=== PATIENT | male | born 1960 | race Caucasian/White ===

== ENCOUNTER 2019-09-16 23:38 | Observation (INO) | payer BC ==
[2019-09-17 00:33] LABS: Absolute Lymphocytes (CBC) 1.6 K/uL (0.7-4.9); Hematocrit 38.9 % (39.6-49.0); Lymphocytes % 13.8 % (15.3-44.8); MPV 7.8 fL (7.6-11.3)
[2019-09-17 00:49] LABS: Protime INR 0.94
[2019-09-17 00:54] LABS: ALT/SGPT 52 U/L (12-78); AST/SGOT 50 U/L (15-37); Albumin 3.6 g/dL (3.4-5.0); Alkaline Phosphatase 45 U/L (45-117); BUN Blood Urea Nitrogen 18 mg/dL (7-18); Bicarbonate 24 mmol/L (21-32); Bilirubin Direct < 0.1 mg/dL (0-0.2); Bilirubin Total 0.3 mg/dL (0.2-1.0); Glucose Level 93 mg/dL (74-106); Magnesium 2.3 mg/dL (1.8-2.4); NT PRO-BNP 50 pg/mL (<125); Potassium 3.9 mmol/L (3.5-5.1); Protein, Total 7.2 g/dL (6.4-8.2); Sodium Level 140 mmol/L (136-145); Troponin (Emerg Dept Use Only) < 0.02 ng/mL (0.0-0.045)
[2019-09-17] MEDS ORDERED: MAGNESIUM SULFATE 1 gm IVPB 1 GM/100 ML BAG IV ONE (01:24)
[2019-09-17] MEDS ORDERED: THIAMINE 200 MG/2 ML INJ ONE (01:24)
[2019-09-17] MEDS ORDERED: FOLIC ACID 5 MG/ML VIAL ONE (01:25)
[2019-09-17] MEDS ORDERED: NA CHLORIDE 0.9% 2,000 ML ONE (01:25)
[2019-09-17] MEDS ORDERED: MULTIVITAMINS 10 ML VIAL (INJ) IV ONE (01:25)
--- NOTE | 2019-09-17 01:34 | EDPHYS ---
Physician Documentation [facility] Name: Teofilo Thornton Age: 59 yrs Sex: Male : 1960 Arrival Date: 09/16/2019 Time: 23:47 Bed 23 Private MD: ED Physician Jules Richardson HPI: 09/16 00:17 This 59 yrs old Male presents to ER via EMS with complaints of Fall Injury. calin 00:17 Details of fall: The patient fell from an upright position, while standing. Onset: The calin symptoms/episode began/occurred just prior to arrival. Associated injuries: The patient sustained injury to the head, injury to the chest. Severity of symptoms: At their worst the symptoms were mild, moderate, in the emergency department the symptoms have improved. The patient has not experienced similar symptoms in the past. Historical: - Allergies: 00:05 No Known Allergies; rr5 - Home Meds: 00:05 None [Active]; rr5 - PMHx: 00:05 None; rr5 - PSHx: 00:05 jaw surgery; rr5 - Immunization history:: Adult Immunizations up to date. - Social history:: Smoking status: unknown Patient uses alcohol, occasionally. Patient/guardian denies using street drugs. ROS: 00:17 Constitutional: Negative for fever, chills, and weight loss, Eyes: Negative for injury, calin pain, redness, and discharge, ENT: Negative for injury, pain, and discharge, Neck: Negative for injury, pain, and swelling, Respiratory: Negative for shortness of breath, cough, wheezing, and pleuritic chest pain, Abdomen/GI: Negative for abdominal pain, nausea, vomiting, diarrhea, and constipation, Back: Negative for injury and pain, : Negative for injury, bleeding, discharge, and swelling, MS/Extremity: Negative for injury and deformity, Skin: Negative for injury, rash, and discoloration, Psych: Negative for depression, anxiety, suicide ideation, homicidal ideation, and hallucinations, Allergy/Immunology: Negative for hives, rash, and allergies, Endocrine: Negative for neck swelling, polydipsia, polyuria, polyphagia, and marked weight changes, Hematologic/Lymphatic: Negative for swollen nodes, abnormal bleeding, and unusual bruising. 00:17 Cardiovascular: Positive for chest pain, of the chest. Exam: 00:17 Constitutional: This is a well developed, well nourished patient who is awake, alert, calin and in no acute distress. Head/Face: Normocephalic, atraumatic. Eyes: Pupils equal round and reactive to light, extra-ocular motions intact. Lids and lashes normal. Conjunctiva and sclera are non-icteric and not injected. Cornea within normal limits. Periorbital areas with no swelling, redness, or edema. ENT: Nares patent. No nasal discharge, no septal abnormalities noted. Tympanic membranes are normal and external auditory canals are clear. Oropharynx with no redness, swelling, or masses, exudates, or evidence of obstruction, uvula midline. Mucous membranes moist. Neck: Trachea midline, no thyromegaly or masses palpated, and no cervical lymphadenopathy. Supple, full range of motion without nuchal rigidity, or vertebral point tenderness. No Meningismus. Chest/axilla: Normal chest wall appearance and motion. Nontender with no deformity. No lesions are appreciated. Respiratory: Lungs have equal breath sounds bilaterally, clear to auscultation and percussion. No rales, rhonchi or wheezes noted. No increased work of breathing, no retractions or nasal flaring. Abdomen/GI: Soft, non-tender, with normal bowel sounds. No distension or tympany. No guarding or rebound. No evidence of tenderness throughout. Back: No spinal tenderness. No costovertebral tenderness. Full range of motion. Male : Normal genitalia with no discharge or lesions. Skin: Warm, dry with normal turgor. Normal color with no rashes, no lesions, and no evidence of cellulitis. MS/ Extremity: Pulses equal, no cyanosis. Neurovascular intact. Full, normal range of motion. Neuro: Awake and alert, GCS 15, oriented to person, place, time, and situation. Cranial nerves II-XII grossly intact. Motor strength 5/5 in all extremities. Sensory grossly intact. Cerebellar exam normal. Normal gait. Psych: Awake, alert, with orientation to person, place and time. Behavior, mood, and affect are within normal limits. 00:17 Cardiovascular: Rate: normal, Rhythm: regular, Pulses: Pulses are 4+ in bilateral radial, brachial, femoral, popliteal, posterior tibial and and dorsalis pedis arteries.. Heart sounds: normal, Edema: is not appreciated, JVD: is not appreciated. 00:24 Neck: External neck: is normal, no acute changes, C-spine: appears grossly normal, no calin acute changes, C-collar placed [employer], Back board [employer] Thyroid: appears normal, Trachea: is midline with no obvious abnormalities, no acute changes, ROM/movement: is normal, no acute changes, Lymph nodes: no appreciated lymphadenopathy, no c spine pain. 06:44 ECG was reviewed by the Attending Physician. [facility] Vital Signs: 00:00 BP 122 / 82; Pulse 91; Resp 16; Temp 98.5; Pulse Ox 99% ; Weight 86.18 kg; Height 5 ft. rr5 10 in. (177.80 cm); Pain 6/10; 01:25 BP 103 / 70; Pulse 90; Resp 17; Pulse Ox 99% on R/A; rr5 02:00 BP 119 / 75; Pulse 110; Resp 16; Pulse Ox 99% on R/A; rr5 02:47 BP 100 / 79; Pulse 108; Resp 19; Pulse Ox 98% on R/A; rr5 00:00 Body Mass Index 27.26 (86.18 kg, 177.80 cm) rr5 MDM: 00:03 Patient medically screened. [facility] 00:20 Data reviewed: vital signs, nurses notes, lab test result(s), EKG, radiologic studies, [facility] CT scan, plain films. 00:21 Differential diagnosis: abnormal EKG, anxiety, chest wall pain, Cholelithiasis calin costochondritis, esophagitis, gastritis, hiatal hernia, pancreatitis, pulmonary embolus, stable angina, unstable angina, arrythmia. HEART Score: History: Slightly Suspicious (0), ECG: Non specific repolarization disturbance / LBTB / PM (1), Age: > 45 and < 65 years (1), Risk Factors: 1 or 2 risk factors (1), [Hypertension] [+ Family HX]. Differential diagnosis: closed head injury, contusion, cardiac arrhythmia, drug effect, GI bleed, vasovagal episode. The patient's deep vein thrombosis risk score was calculated as follows: Total Score: 0. This patient was found to be at low risk for a deep vein thrombosis by using the Well's assessment criteria. The patient's pulmonary embolism risk score was calculated as follows: Total Score: 0-2 points. This patient was found to be at low risk for a pulmonary embolism by using the Well's assessment criteria. SUSANA Risk Score: TOTAL SCORE = 0. Data interpreted: lunchroom monitor: rate is 91 beats/min, rhythm is atrial fibrillation, Pulse oximetry: on room air is 99 %. Test interpretation: by ED physician or midlevel provider: ECG, plain radiologic studies. Counseling: I had a detailed discussion with the patient and/or guardian regarding: the historical points, exam findings, and any diagnostic results supporting the discharge/admit diagnosis, lab results, radiology results, the need for further work-up and treatment in the hospital. 01:34 ED course: etoh, syncope, chest compressions, a fib new, obs , dr nichole. [facility] 09/16 00:01 Order name: Basic Metabolic Panel; Complete Time: rr 09/16 00:01 Order name: CBC with Diff; Complete Time: rr09/16 00:01 Order name: LFT's; Complete Time: rr 09/16 00:01 Order name: Magnesium; Complete Time: rr09/16 00:01 Order name: NT PRO-BNP; Complete Time: rr09/16 00:01 Order name: PT-INR; Complete Time: rr09/16 00:01 Order name: Troponin (emerg Dept Use Only); Complete Time: rr09/16 00:01 Order name: XRAY Chest (1 view) [facility] 09/16 00:16 Order name: Lipase [facility] 09/16 00:16 Order name: TSH [facility] 09/16 01:52 Order name: T4 Free [facility] 09/16 02:11 Order name: Troponin I [facility] 09/16 02:11 Order name: Troponin I [facility] 09/16 02:11 Order name: Troponin I [facility] 09/16 00:01 Order name: EKG; Complete Time: 00:02 rr09/16 00:01 Order name: Cardiac monitoring; Complete Time: 00:34 rr 09/16 00:16 Order name: CT Head Brain wo Cont [facility] 09/16 02:11 Order name: CONS Physician Consult [facility] 09/16 02:11 Order name: Echo with Doppler [facility] 09/16 02:11 Order name: EKG Electrocardiogram [facility] 09/16 02:11 Order name: EKG Electrocardiogram [facility] 09/16 02:13 Order name: EKG Electrocardiogram EDMS 09/16 13:18 Order name: RAD EDMS 09/16 00:01 Order name: EKG - Nurse/Tech; Complete Time: 00:33 rr5 09/16 00:01 Order name: IV Saline Lock; Complete Time: 00:33 rr5 09/16 00:01 Order name: Labs collected and sent; Complete Time: 00:33 rr5 09/16 00:01 Order name: O2 Per Protocol; Complete Time: 00:34 rr09/16 00:01 Order name: O2 Sat Monitoring; Complete Time: 00:34 rr5 EC:44 Rate is 99 beats/min. Rhythm is irregular. QRS [place] is Normal. [place] interval is normal. calin QRS interval is normal. QT interval is normal. No Q waves. T waves are Normal. No ST changes noted. Clinical impression: Atrial Fibrillation and No evidence of ischemia. Interpreted by me. Reviewed by me. Administered Medications: 00:40 Drug: Magnesium Sulfate 1 grams Route: IVPB; Infused Over: 1 hrs; Site: left rr5 antecubital; 01:50 Follow up: Response: No adverse reaction; IV Status: Completed infusion; IV Intake: rr5 100ml 00:40 Drug: NS 0.9% 1000 ml Route: IV; Rate: 1 bolus; Site: left antecubital; rr5 01:40 Follow up: Response: No adverse reaction; IV Status: Completed infusion; IV Intake: rr5 1000ml 00:41 Drug: Thiamine 100 mg Route: IV; Rate: bolus; Site: left antecubital; rr5 01:57 Follow up: Response: No adverse reaction; IV Status: Completed infusion rr5 01:56 Drug: Banana Bag - (NS 0.9% 1000 ml, foLIC Acid 1 mg, Thiamine 100 mg, Multivitamin 1 rr5 amp) Route: IV; Rate: 125 ml/hr; Site: left antecubital; 05:51 Follow up: Response: No adverse reaction; IV Status: Infusion continued upon admission; rr5 IV Intake: 500ml 02:05 Drug: Lopressor (metoprolol TARTRATE) 50 mg Route: PO; rr5 03:05 Follow up: Response: No adverse reaction rr5 02:07 Drug: Lovenox 90 mg Route: Sub-Q; Site: right lower abdomen; rr5 03:10 Follow up: Response: No adverse reaction rr5 02:08 Drug: Pepcid 20 mg Route: IVP; Site: left antecubital; rr5 03:10 Follow up: Response: No adverse reaction rr5 Disposition: 09/17/19 01:33 Hospitalization ordered by Brigid Nichole for Observation. Preliminary diagnosis are Syncope and collapse - alcohol ingerstion, Other chest pain - wall, sp compressions, Atrial fibrillation and flutter - new onset. - Bed requested for Telemetry/MedSurg (observation). - Status is Observation. hb - Condition is Stable. - Problem is new. - Symptoms have improved. Signatures: Dispatcher [employer] EDMS Laney Figueroa RN Kika Nowak RN Jules Ramos MD MD cha Baxter, Heather, RN RN Hair Guadalupe RN RN rr5 Corrections: (The following items were deleted from the chart) 01:39 01:33 Hospitalization Ordered by Brigid Nichole MD for Observation. Preliminary mw diagnosis is Syncope and collapse - alcohol ingerstion; Other chest pain - wall, sp compressions; Atrial fibrillation and flutter - new onset. Bed requested for Telemetry/MedSurg (observation). Status is Observation. Condition is Stable. Problem is new. Symptoms have improved. [facility] 12:56 01:39 09/17/2019 01:33 Hospitalization Ordered by Brigid Nichole MD for Observation. dw Preliminary diagnosis is Syncope and collapse - alcohol ingerstion; Other chest pain - wall, sp compressions; Atrial fibrillation and flutter - new onset. Bed requested for [facility] ER HOLD. Status is Observation. Condition is Stable. Problem is new. Symptoms have improved. mw 14:42 12:56 09/17/2019 01:33 Hospitalization Ordered by Brigid Nichole MD for Observation. hb Preliminary diagnosis is Syncope and collapse - alcohol ingerstion; Other chest pain - wall, sp compressions; Atrial fibrillation and flutter - new onset. Bed requested for Telemetry/MedSurg (observation). Status is Observation. Condition is Stable. Problem is new. Symptoms have improved. dw
--- NOTE | 2019-09-17 01:34 | ER ---
Nurse's Notes [facility] Name: Teofilo Thornton Age: 59 yrs Sex: Male : 1960 Arrival Date: 09/16/2019 Time: 23:47 Bed 23 Private MD: Diagnosis: Syncope and collapse-alcohol ingerstion;Other chest pain-wall, sp compressions;Atrial fibrillation and flutter-new onset Presentation: 09/16 00:00 Chief complaint: Patient states: fell from a standing position, syncopal episode. hit rr5 his right shoulder. family stated he has no pulse or breathing they did 2 rounds of CPR. when we arrived patient is fully awake, oriented complaining of chest sore due from Chest compression. patient is Afib on child monitor not a known case. 00:00 Coronavirus screen: Proceed with normal triage. Ebola Screen: Patient negative for rr5 fever greater than or equal to 101.5 degrees Fahrenheit, and additional compatible Ebola Virus Disease symptoms Patient denies exposure to infectious person. Patient denies travel to an Ebola-affected area in the 21 days before illness onset. Initial Sepsis Screen: Does the patient meet any 2 criteria? No. Patient's initial sepsis screen is negative. Does the patient have a suspected source of infection? No. Patient's initial sepsis screen is negative. Risk Assessment: Do you want to hurt yourself or someone else? Patient reports no desire to harm self or others. Onset of symptoms was September 17, 2019. 00:00 Method Of Arrival: EMS: [facility] rr5 00:00 Acuity: GUALBERTO 3 rr5 00:00 Note patient had alcohol intake tonight as stated. CBG 95 mg/dl from EMS. rr5 Historical: - Allergies: 00:05 No Known Allergies; rr5 - Home Meds: 00:05 None [Active]; rr5 - PMHx: 00:05 None; rr5 - PSHx: 00:05 jaw surgery; rr5 - Immunization history:: Adult Immunizations up to date. - Social history:: Smoking status: unknown Patient uses alcohol, occasionally. Patient/guardian denies using street drugs. Screenin:00 Abuse screen: Denies threats or abuse. Denies injuries from another. Nutritional rr5 screening: No deficits noted. Tuberculosis screening: No symptoms or risk factors identified. Fall Risk IV access (20 points). Total Garcia Fall Scale indicates No Risk (0-24 pts). Assessment: 00:00 General: Appears in no apparent distress. uncomfortable, Behavior is calm, cooperative, rr5 appropriate for age, on C collar and backboard.. 00:00 Pain: Complains of pain in chest Pain does not radiate. Pain currently is 6 out of 10 rr5 on a pain scale. Quality of pain is described as aching, Pain began gradually, Is intermittent. Neuro: Level of Consciousness is awake, alert, obeys commands, Oriented to person, place, time, situation, Appropriate for age. Cardiovascular: Reports chest pain, Capillary refill < 3 seconds Patient's skin is warm and dry. Parent/caregiver reports patient has had syncope, episode of NO HR and RR. Respiratory: Airway is patent Respiratory effort is even, unlabored, Respiratory pattern is regular, symmetrical. GI: No signs and/or symptoms were reported involving the gastrointestinal system. : No signs and/or symptoms were reported regarding the genitourinary system. EENT: No signs and/or symptoms were reported regarding the EENT system. Derm: Skin is intact, is healthy with good turgor, Skin temperature is warm. Musculoskeletal: Circulation, motion, and sensation intact. Capillary refill < 3 seconds. 00:30 Reassessment: Patient appears in no apparent distress at this time. Patient is alert, rr5 oriented x 3, equal unlabored respirations, skin warm/dry/pink. seen and examined by the provider C-Collar and backboard cleared. 01:30 Reassessment: Patient appears in no apparent distress at this time. Patient is alert, rr5 oriented x 3, equal unlabored respirations, skin warm/dry/pink. for admission patient agreed for the plan of care. awaiting for results. 02:49 Reassessment: Patient appears in no apparent distress at this time. No changes from rr5 previously documented assessment. Patient is alert, oriented x 3, equal unlabored respirations, skin warm/dry/pink. eyes closed breathing spontaneously at room air. no complaints made. Vital Signs: 00:00 BP 122 / 82; Pulse 91; Resp 16; Temp 98.5; Pulse Ox 99% ; Weight 86.18 kg; Height 5 ft. rr5 10 in. (177.80 cm); Pain 6/10; 01:25 BP 103 / 70; Pulse 90; Resp 17; Pulse Ox 99% on R/A; rr5 02:00 BP 119 / 75; Pulse 110; Resp 16; Pulse Ox 99% on R/A; rr5 02:47 BP 100 / 79; Pulse 108; Resp 19; Pulse Ox 98% on R/A; rr5 00:00 Body Mass Index 27.26 (86.18 kg, 177.80 cm) rr5 ED Course: 09/15 23:47 Patient arrived in ED. cl3 09/16 00:00 Hair Ahumada, RN is Primary Nurse. rr5 00:00 Maintain EMS IV. Dressing intact. Good blood return noted. Site clean \T\ dry. Gauge \T\ rr 5 site: G18 left AC. 00:00 Patient has correct armband on for positive identification. Placed in gown. Bed in low rr5 position. Call light in reach. Side rails up X2. campus monitor on. Pulse ox on. NIBP on. 00:00 Warm blanket given. rr5 00:03 Jules Richardson MD is Attending Physician. calin 00:04 Triage completed. rr5 00:05 Arm band placed on right wrist. C-collar applied. rr5 00:33 XRAY Chest (1 view) In Process Unspecified. EDMS 00:34 PT-INR Sent. ds4 00:34 EKG done, by ED staff, reviewed by Jules Richardson MD. ds4 01:06 CT Head Brain wo Cont In Process Unspecified. EDMS 01:31 Brigid Marinelli MD is Hospitalizing Provider. calin 02:45 No provider procedures requiring assistance completed. Patient admitted, IV remains in rr5 place. intact, No redness/swelling at site. Administered Medications: 00:40 Drug: Magnesium Sulfate 1 grams Route: IVPB; Infused Over: 1 hrs; Site: left rr5 antecubital; 01:50 Follow up: Response: No adverse reaction; IV Status: Completed infusion; IV Intake: rr5 100ml 00:40 Drug: NS 0.9% 1000 ml Route: IV; Rate: 1 bolus; Site: left antecubital; rr5 01:40 Follow up: Response: No adverse reaction; IV Status: Completed infusion; IV Intake: rr5 1000ml 00:41 Drug: Thiamine 100 mg Route: IV; Rate: bolus; Site: left antecubital; rr5 01:57 Follow up: Response: No adverse reaction; IV Status: Completed infusion rr5 01:56 Drug: Banana Bag - (NS 0.9% 1000 ml, foLIC Acid 1 mg, Thiamine 100 mg, Multivitamin 1 rr5 amp) Route: IV; Rate: 125 ml/hr; Site: left antecubital; 05:51 Follow up: Response: No adverse reaction; IV Status: Infusion continued upon admission; rr5 IV Intake: 500ml 02:05 Drug: Lopressor (metoprolol TARTRATE) 50 mg Route: PO; rr5 03:05 Follow up: Response: No adverse reaction rr5 02:07 Drug: Lovenox 90 mg Route: Sub-Q; Site: right lower abdomen; rr5 03:10 Follow up: Response: No adverse reaction rr5 02:08 Drug: Pepcid 20 mg Route: IVP; Site: left antecubital; rr5 03:10 Follow up: Response: No adverse reaction rr5 Intake: 01:40 IV: 1000ml; Total: 1000ml. rr5 01:50 IV: 100ml; Total: 1100ml. rr5 05:51 IV: 500ml; Total: 1600ml. rr5 Outcome: 01:33 Decision to Hospitalize by Provider. calin 03:30 Admitted to ER Hold. Please see [facility] for further documentation. rr5 03:30 Condition: stable 03:30 Instructed on the need for admit. 14:42 Patient left the ED. Signatures: Dispatcher [employer] Jules Rojas MD MD cha Swanson, Donovan ds4 Arlyn Chau RN RN Hair Ahumada RN RN rr5 Wilda Mcpherson cl3
[2019-09-17] MEDS ORDERED: ALPRAZOLAM 0.25 MG TABLET PO PRN (01:46)
[2019-09-17] MEDS ORDERED: MORPHINE 4 MG/ML SYR IV PRN (01:46)
[2019-09-17] MEDS ORDERED: ACETAMINOPHEN 500 MG TAB PO PRN (01:46)
[2019-09-17 01:51] LABS: Thyroid Stimulating Hormone 5.35 uIU/mL (0.360-3.740)
[2019-09-17] MEDS ORDERED: ENOXAPARIN 100 MG/ML SYR SQ ONE (02:07)
[2019-09-17] MEDS ORDERED: METOPROLOL TAR 50 MG TAB ONE ×2 (02:07→08:34)
[2019-09-17] MEDS ORDERED: FAMOTIDINE 20 MG/2 ML VIAL IV ONE (02:08)
[2019-09-17 04:30] VITALS: BMI 27.1
[2019-09-17] MEDS ORDERED: MORPHINE 4 MG/ML SYR ONE (05:38)
[2019-09-17] MEDS: METOPROLOL TAR 50 MG TAB PO SCH ×3 (06:00→22:38)
--- NOTE | 2019-09-17 07:49 | P.HP ---
Certification for Inpatient Patient admitted to: Inpatient With expected LOS: >2 Midnights Patient will require the following post-hospital care: None Practitioner: I am a practitioner with admitting privileges, knowledge of patient current condition, hospital course, and medical plan of care. Services: Services provided to patient in accordance with Admission requirements found in Title 42 Section 412.3 of the Code of Federal Regulations Patient History Date of Service: 09/17/19 Reason for admission: Syncope; atrial fibrillation with RVR History of Present Illness: Patient is a 59-year-old gentleman who came to the hospital with a syncopal event. Patient passed out and collapsed. Family members did some chest compressions because they could not feel a pulse. Patient came around and was brought in by EMS and found have atrial fibrillation with rapid ventricular response. Patient has similar event occur about a year ago. At that time he ended up in the ICU at [facility] for 4 days. He suffered a fractured jaw. He needed surgical intervention. They never discovered the etiology of his syncopal event. Patient had a similar event occur this evening and he is in atrial fibrillation with rapid ventricular response. Patient will be admitted to the hospital and started on a beta-eusebio along with anti coagulation. Cardiology consultation is pending. Allergies No Known Allergies Allergy (Unverified 09/17/19 04:05) - Past Medical/Surgical History Past Medical History: Patient denies medical history -: Jaw surgery - Family History Father Family History: Reviewed- Non-Contributory - Social History Smoking Status: Unknown if ever smoked Alcohol use: Yes CD- Drugs: No Review of Systems 10-point ROS is otherwise unremarkable Physical Examination - Vital Signs Temperature: 98.2 F Blood Pressure: 109/68 Pulse: 110 Respirations: 19 Pulse Ox (%): 100 - Physical Exam General: Alert, In no apparent distress, Oriented x3 HEENT: Atraumatic, PERRLA, Mucous membr. moist/pink, EOMI, Sclerae nonicteric Neck: Supple, 2+ carotid pulse no bruit, No LAD, Without JVD or thyroid abnormality Respiratory: Clear to auscultation bilaterally, Normal air movement Cardiovascular: Irregular heart rate/rhythm, Systolic murmur Gastrointestinal: Normal bowel sounds, Soft and benign, Non-distended, No tenderness Musculoskeletal: No clubbing, No swelling, No tenderness Integumentary: No rashes Neurological: Normal gait, Normal speech, Normal strength at 5/5 x4 extr, Normal tone, Sensation intact, Cranial nerves 3-12 intact, Normal affect Lymphatics: No axilla or inguinal lymphadenopathy - Studies Laboratory Data (last 24 hrs) 09/17/19 00:15: Lipase 149 09/17/19 00:15: PT 11.1, INR 0.94 09/17/19 00:15: WBC 11.9 H, Hgb 13.4 L, Hct 38.9 L, Plt Count 251 09/17/19 00:15: Sodium 140, Potassium 3.9, BUN 18, Creatinine 1.28, Glucose 93, Magnesium 2.3, Total Bilirubin 0.3, AST 50 H, ALT 52, Alkaline Phosphatase 45 Assessment & Plan - Problems (Diagnosis) (1) Atrial fibrillation with rapid ventricular response Current Visit: Yes Status: Acute (2) Syncope and collapse Current Visit: Yes Status: Acute - Plan Plan: 1. Continue with Lopressor and Eliquis 2. Echocardiogram 3. Cardiology consultation 4. Thyroid studies 5. Serial troponins and EKG 6. Patient may need electrical cardioversion 7. GI and DVT prophylaxis Discharge Plan: Home Plan to discharge in: Greater than 2 days - Advance Directives Does patient have a Living Will: No Does patient have a Durable POA for Healthcare: No - Code Status/Comfort Care Code Status Assessed: Yes Code Status: Full Code Critical Care: No Time Spent Managing PTS Care (In Minutes): 40
[2019-09-17] MEDS ORDERED: chlordiazePOXIDE HCl 5 MG CAP PO PRN (08:03)
[2019-09-17] MEDS: chlordiazePOXIDE HCl 5 MG CAP PO SCH ×3 (08:33→22:39)
[2019-09-17] MEDS ORDERED: chlordiazePOXIDE HCl 5 MG CAP PO ONE ×2 (08:36→14:36)
[2019-09-17] MEDS ORDERED: ENOXAPARIN 40 MG/0.4 ML SQ SCH (09:00)
[2019-09-17] MEDS ORDERED: APIXABAN 5 MG TABLET PO SCH (09:00)
--- NOTE | 2019-09-17 11:32 | RAD REPORT ---
EXAM DESCRIPTION: RAD - Chest Single View - 09/17/2019 12:33 am CLINICAL HISTORY: CHEST PAIN COMPARISON: None TECHNIQUE: AP portable chest image was obtained 09/17/2019 12:33 am . FINDINGS: No peripheral mass or consolidation. Interstitial pattern is prominent, accentuated by por table technique and shallow inspiration. Baseline for the patient is unknown. Significant failure or volume overload are not suspected. Heart and vasculature are normal. No measurable pleural effusion and no pneumothorax. No acute bony abnormality seen. No acute aortic findings suspected. IMPRESSION: Baseline portable study shows prominence of the interstitial pattern. A mild interstitia l edema or infiltrate cannot be excluded. No focal mass or consolidation seen.
[2019-09-17] MEDS ORDERED: TRAMADOL HCL 50 MG TAB PO PRN (11:34)
[2019-09-17] MEDS: APIXABAN 5 MG TABLET PO SCH ×2 (12:00→22:38)
--- NOTE | 2019-09-17 12:03 | CON ---
Date of Consultation: 09/17/2019 Reason For Consultation: Atrial fibrillation and syncope. History Of Present Illness: Mr. Thornton is a 59-year-old white male without any previous past medica l history. He obviously uses excessive amount of alcohol. He does not remember what happened ____ some CPR because the patient was unresponsive, but when he came in with atrial fibrillation with rapid ventricular response. stated that he was not feeling well, was slightly nauseated and diaphoretic, but did not have vomiting and did not have any PND, orthopnea, pedal edema, or palpi tation. He had some chest discomfort, which continues right now after his CPR. Past Medical History: Otherwise negative. Allergies: NONE. Review of Systems: Negative. Social History: Positive for tobacco and alcohol. Family History: Negative. Physical Examination: General: He was sore in his chest, in atrial fibrillation, rate of 110. Afebrile, normal blood pres sure. HEENT: Negative. Neck: Supple with no bruit. Chest: Clear. Cardiac: Revealed atrial fibrillation. No murmurs, gallops, or rubs. Abdomen: Benign. EXTREMITIES: Revealed no clubbing, cyanosis, or edema. Diagnostic Data: EKG showed AFib. TSH was 5.35. White count is 11.9, blood pressure 119/68 ___. Troponin was negative. BNP was negative. Chest x-ray was negative. Impression And Plan: New onset atrial fibrillation, maybe holiday heart syndrome that may have cause d syncope. His syncope certainly could have also been vasovagal because of nausea and discomfort in general. I do not think we are dealing with an acute coronary syndrome. I think we will need to con tinue Eliquis, Xanax, metoprolol, banana bag, put him on Librium to avoid delirium tremens. He needs to be admitted to telemetry and observe. Hopefully, his metoprolol will be sufficient to switch him to normal rhythm. Now, we will consider sotalol. If he stays in the hospital, he needs to have an echocardiogram to rule out cardiomyopathy. As an outpatient, he should have Lexiscan. I will discus s the case further with Dr. Rene. MORALES/KAREN Voice ID: [id number] Report ID: [id number]
--- NOTE | 2019-09-17 13:07 | RAD REPORT ---
EXAM DESCRIPTION: Shoulder Right 2 View - 09/17/2019 12:18 pm CLINICAL HISTORY: pain right shoulder COMPARISON: Chest Single View dated 09/17/2019 TECHNIQUE: Internal and external rotation views of the right shoulder were obtained. FINDINGS: There is no fracture or dislocation. No clavicle fracture or displaced clavicle head. Wid ening of the AC joint is present. This greater than typically seen and could be mild AC joint separat ion. No remote imaging available to establish long-term appearance. Patient does have significant meredith nward tilting of the acromion which can be seen with shoulder impingement. The acromial humeral joint space is normal. No acute or suspicious findings. IMPRESSION: No fracture or dislocation of the proximal humerus. No clavicle fracture. Patient may have a mild AC joint separation. Correlation is needed with focal A C joint symptoms.
[2019-09-17] MEDS: HYDROCODONE/APAP 7.5/325 MG TAB PO PRN (15:55)
--- NOTE | 2019-09-17 19:48 | RAD REPORT ---
EXAM DESCRIPTION: CT - Head Brain Wo Cont - 09/17/2019 6:56 am CLINICAL HISTORY: The patient is 59 years old and is Male; DIZZINESS TECHNIQUE: Axial computed tomography images of the head/brain without intravenous contrast. Sagitt al and coronal reformatted images were created and reviewed. This CT exam was performed using one o r more of the following dose reduction techniques: automated exposure control, adjustment of the mA and/or kV according to patient size, and/or use of iterative reconstruction technique. COMPARISON: No relevant prior studies available. FINDINGS: BRAIN: Unremarkable. The jones-white matter differentiation is preserved . No hemorrhag e. No significant white matter disease. No edema. No extra-axial fluid collections. VENTRICLES: Unremarkable. No ventriculomegaly. BONES/JOINTS: No acute fracture. SOFT TISSUES: Unremarkable. SINUSES: Unremarkable as visualized. No acute sinusitis. MASTOID AIR CELLS: Unremarkable as visualized. No mastoid effusion. ORBITS: Unremarkable as visualized. IMPRESSION: No acute intracranial findings. Electronically signed by: Yolis Moody MD 09/17/2019 1:13 AM CDT Due to temporary technical issues with the PACS/Fluency reporting system, reports are being signed by the in house radiologist as a courtesy to ensure prompt reporting. The interpreting radiologist is f ully responsible for the content of the report.
[2019-09-18] MEDS: HYDROCODONE/APAP 7.5/325 MG TAB PO PRN ×2 (04:17→10:37)
[2019-09-18 04:47] VITALS: O2SAT 95
[2019-09-18] MEDS: APIXABAN 5 MG TABLET PO SCH (08:24)
[2019-09-18] MEDS: METOPROLOL TAR 50 MG TAB PO SCH (08:24)
--- NOTE | 2019-09-18 08:55 | EKG ---
Test Date: 2019-09-17 Test Time: 08:01:36 Lineman A Class: JOSE G MEASUREMENT RESULTS: Intervals: Rate: 106 ID: QRSD: 82 QT: 328 QTc: 435 [place]: P: ID: QRS: [id number] T: 13 INTERPRETIVE STATEMENTS: Atrial fibrillation with rapid ventricular response Abnormal ECG Compared to ECG 09/16/2019 23:59:11 No significant changes Electronically Signed On 09-18-19 08:52:55 CDT by Rc Escudero
--- NOTE | 2019-09-18 08:55 | EKG ---
Test Date: 2019-09-16 Test Time: 23:59:11 Liberal Arts Teacher: CARLOS MEASUREMENT RESULTS: Intervals: Rate: 99 [place]: QRSD: 82 QT: 334 QTc: 428 [place]: P: [place]: QRS: 63 T: 38 INTERPRETIVE STATEMENTS: Atrial fibrillation Abnormal ECG No previous ECG available for comparison Electronically Signed On 09-18-19 08:54:00 CDT by Rc Escudero
--- NOTE | 2019-09-18 10:51 | RAD REPORT ---
EXAM DESCRIPTION: MRI - Shoulder Rt Wo Cont - 09/18/2019 10:04 am CLINICAL HISTORY: Shoulder pain COMPARISON: September 16 x-ray TECHNIQUE: Axial proton density fat saturation, parasagittal T1 weighted and para coronal proton den sity, T2 and T2 fat saturation weighted sequences were obtained. FINDINGS: Signal is present within the supraspinatus tendon having the appearance of a mild tendinop athy. No full-thickness tear. Partial tear of the superior insertion of the subscapularis tendon Bicep tendon lies within the bicipital groove. A tear is not seen A glenoid labrum tear is not seen. Fluid is present within the AC joint with mild widening consistent with tear of the ligament. Signal within the deltoid muscle IMPRESSION: AC ligamentous tear with mild widening of the joint space Partial tear supraspinatus tendon Signal is present within the deltoid muscle consistent with a mild strain Partial tear of the superior insertion of the subscapularis tendon
--- NOTE | 2019-09-18 11:15 | P.DS ---
Admission Date: 09/17/19 Discharge Date: 09/18/19 Primary Care Provider: unknown Disposition: ROUTINE DISCHARGE Reason for Admission: Syncope; atrial fibrillation with RVR Consultations: Cardiology-Dr. Escudero Procedures: MRI shoulder: FINDINGS: Signal is present within the supraspinatus tendon having the appearance of a mild tendinopathy. No full-thickness tear. Partial tear of the superior insertion of the subscapularis tendon Bicep tendon lies within the bicipital groove. A tear is not seen A glenoid labrum tear is not seen. Fluid is present within the AC joint with mild widening consistent with tear of the ligament. Signal within the deltoid muscle IMPRESSION: AC ligamentous tear with mild widening of the joint space Partial tear supraspinatus tendon Signal is present within the deltoid muscle consistent with a mild strain Partial tear of the superior insertion of the subscapularis tendon CXR: FINDINGS: No peripheral mass or consolidation. Interstitial pattern is prominent, accentuated by portable technique and shallow inspiration. Baseline for the patient is unknown. Significant failure or volume overload are not suspected. Heart and vasculature are normal. No measurable pleural effusion and no pneumothorax. No acute bony abnormality seen. No acute aortic findings suspected. IMPRESSION: Baseline portable study shows prominence of the interstitial pattern. A mild interstitial edema or infiltrate cannot be excluded. No focal mass or consolidation seen. CT Head: COMPARISON: No relevant prior studies available. FINDINGS: BRAIN: Unremarkable. The jones-white matter differentiation is preserved . No hemorrhage. No significant white matter disease. No edema. No extra-axial fluid collections. VENTRICLES: Unremarkable. No ventriculomegaly. BONES/JOINTS: No acute fracture. SOFT TISSUES: Unremarkable. SINUSES: Unremarkable as visualized. No acute sinusitis. MASTOID AIR CELLS: Unremarkable as visualized. No mastoid effusion. ORBITS: Unremarkable as visualized. IMPRESSION: No acute intracranial findings. Medical Problem List: Syncope secondary to atrial fibrillation with RVR with possible holiday heart syndrome, now normal sinus rhythm Alcohol abuse Right shoulder pain secondary to AC ligamentous tear with mild widening of joint space, partial tear supraspinatus tendon, partial tear of superior insertion of subscapularis tendon, and deltoid muscle strain Rib soreness secondary to compressions status post CPR Elevated tsh with normal free T4 suspect subclinical hypothyroidism Brief History of Present Illness: 59-year-old male without medical problems presented to the emergency room after a syncopal episode. He was with family when this occurred. He was drinking at the time. Patient fell to the ground became unresponsive. Family perform CPR. When EMS arrived he was found to have AFib with RVR. The patient was transported to the ER and admitted for further evaluation and treatment. Hospital Course: Patient presented with atrial fibrillation with RVR with possible holiday heart syndrome, now normal sinus rhythm. The patient was admitted for further evaluation and treatment. CT head unremarkable. Patient was seen and evaluated by Cardiology. The patient was started on anti coagulation therapy and metoprolol. The patient did well then the course of his stay. Patient now normal sinus rhythm. No acute coronary syndrome noted. No further chest pain, shortness of breath, or palpitations noted. At discharge cardiology recommends that the patient continue with aspirin 81 mg daily and Toprol-XL 50 mg 1 pill daily. The patient will follow up with cardiology within 1 week to follow up this hospitalization. Patient will require echocardiogram and outpatient cardiac stress test to further evaluate his condition. Due to the syncopal episode the patient fell to his right side. Patient reported chest pain and rib soreness. MRI of right shoulder shows AC ligamentous tear with mild widening of joint space, partial tear supraspinatus tendon, partial tear of superior insertion of subscapularis tendon and deltoid muscle strain. Patient will be given tramadol 50 mg 3 times a day as needed for pain. Patient will continue with a sling for the right arm and shoulder. Recommend the patient to follow up with orthopedics as an outpatient to further address and monitor. No heavy lifting, pushing or pulling is recommended. Patient with alcohol abuse. Recommend alcohol cessation. Patient may continue with thiamine 100 mg daily and folic acid 1 mg daily. Education on cessation provide. Tsh slightly elevated with normal free T4, suspect subclinical hypothyroidism. Recommend to recheck lab-tsh and free T4 in 4-6 weeks to further monitor and address. Vital Signs/Physical Exam: Temp Pulse Resp BP Pulse Ox 97.5 F 71 18 110/67 95 09/18/19 04:00 09/18/19 08:24 09/18/19 10:37 09/18/19 08:24 09/18/19 10:37 General: Alert, In no apparent distress, Oriented x3, Cooperative HEENT: Atraumatic Neck: Supple Respiratory: Clear to auscultation bilaterally, Normal air movement, Other (Soreness to the right chest wall) Cardiovascular: Normal pulses, Regular rate/rhythm Gastrointestinal: Normal bowel sounds, Soft and benign, Non-distended Musculoskeletal: Other (Pain to the right shoulder. Some difficulty with elevation and external rotation strain) Neurological: Normal speech, Normal affect, Abnormal strength (As above) Laboratory Data at Discharge: WBC 11.9 K/uL (4.3-10.9) H 09/17/19 00:15 Hgb 13.4 g/dL (13.6-17.9) L 09/17/19 00:15 Hct 38.9 % (39.6-49.0) L 09/17/19 00:15 Plt Count 251 K/uL (152-406) 09/17/19 00:15 PT 11.1 SECONDS (9.5-12.5) 09/17/19 00:15 INR 0.94 09/17/19 00:15 Sodium 140 mmol/L (136-145) 09/17/19 00:15 Potassium 3.9 mmol/L (3.5-5.1) 09/17/19 00:15 BUN 18 mg/dL (7-18) 09/17/19 00:15 Creatinine 1.28 mg/dL (0.55-1.3) 09/17/19 00:15 Glucose 93 mg/dL (74-106) 09/17/19 00:15 Magnesium 2.3 mg/dL (1.8-2.4) 09/17/19 00:15 Total Bilirubin 0.3 mg/dL (0.2-1.0) 09/17/19 00:15 AST 50 U/L (15-37) H 09/17/19 00:15 ALT 52 U/L (12-78) 09/17/19 00:15 Alkaline Phosphatase 45 U/L (45-117) 09/17/19 00:15 Troponin I < 0.02 ng/mL (0.0-0.045) 09/17/19 12:43 Lipase 149 U/L (73-393) 09/17/19 00:15 Home Medications: Aspirin [Aspirin EC 81 MG] 81 mg PO DAILY #90 tablet.dr 09/18/19 Folic Acid 1 mg PO DAILY #90 tablet 09/18/19 Metoprolol Succinate [Toprol Xl] 50 mg PO DAILY #30 tab 09/18/19 Thiamine HCl 100 mg PO DAILY #90 tablet 09/18/19 New Medications: Aspirin [Aspirin EC 81 MG] 81 mg PO DAILY #90 tablet. Folic Acid 1 mg PO DAILY #90 tablet Thiamine HCl 100 mg PO DAILY #90 tablet Metoprolol Succinate [Toprol Xl] 50 mg PO DAILY #30 tab Patient Discharge Instructions: 1. Recommend follow up with PCP in 1 week to follow up this hospitalization. 2. Patient presented with atrial fibrillation with RVR with possible holiday heart syndrome, now normal sinus rhythm. The patient was admitted for further evaluation and treatment. CT head unremarkable. Patient was seen and evaluated by Cardiology. The patient was started on anti coagulation therapy and metoprolol. The patient did well then the course of his stay. Patient now normal sinus rhythm. No acute coronary syndrome noted. No further chest pain, shortness of breath, or palpitations noted. At discharge cardiology recommends that the patient continue with aspirin 81 mg daily and Toprol-XL 50 mg 1 pill daily. The patient will follow up with cardiology within 1 week to follow up this hospitalization. Patient will require echocardiogram and outpatient cardiac stress test to further evaluate his condition. 3. Due to the syncopal episode the patient fell to his right side. Patient reported chest pain and rib soreness. MRI of right shoulder shows AC ligamentous tear with mild widening of joint space, partial tear supraspinatus tendon, partial tear of superior insertion of subscapularis tendon and deltoid muscle strain. Patient will be given tramadol 50 mg 3 times a day as needed for pain. Patient will continue with a sling for the right arm and shoulder. Recommend the patient to follow up with orthopedics as an outpatient to further address and monitor. No heavy lifting, pushing or pulling is recommended. 4. Patient with alcohol abuse. Recommend alcohol cessation. Patient may continue with thiamine 100 mg daily and folic acid 1 mg daily. Education on cessation provide. 5. Tsh slightly elevated with normal free T4, suspect subclinical hypothyroidism. Recommend to recheck lab-tsh and free T4 in 4-6 weeks to further monitor and address. Diet: AHA Activity: Fall precautions Time spent managing pt's care (in minutes): 55
--- NOTE | 2019-09-18 11:43 | RAD REPORT ---
EXAM DESCRIPTION: RADRibs Bilateral09/18/2019 10:23 am CLINICAL HISTORY: Bilateral rib pain. FINDINGS: Mildly to moderately displaced fractures involve the right fourth and fifth anterior ribs . No pneumothorax noted
[2019-09-18 12:22] VITALS: BP 115/57; TEMP 98.2
--- NOTE | 2019-09-18 13:38 | PN ---
Date of Progress Note: 09/18/2019 Mr. Thornton is a gentleman who got admitted yesterday with new onset atrial fibrillation after a brie f episode of alcohol yesterday. He was given an IV banana bag. He was given thiamine. He was given Librium. He was given beta-blockers and Eliquis. Today, he is back in sinus rhythm and completely asymptomatic. His TSH was slightly elevated. We may have to evaluate that down the road. [facility] on a beta-eusebio and aspirin only. This may have been holiday heart syndr ome. He has a low CHADS score. Nevertheless, I will make sure he gets an echocardiogram and a stres s test with [facility] as an outpatient. He can go home today. A prescription was given to him for Toprol-XL 50 daily. Also, he got a prescription for tramadol 50 mg 3 times a day p.r.n. pain. The dick johnson has received some chest compressions initially when he had a syncopal episode. MORAELS/KAREN Voice ID: [id number] Report ID: [id number]
--- NOTE | 2019-09-20 06:14 | EKG ---
Test Date: 2019-09-18 Test Time: 11:02:44 Consumer Marketing Analyst: KIRTI MEASUREMENT RESULTS: Intervals: Rate: 66 [place]: 188 QRSD: 82 QT: 394 QTc: 413 [place]: P: 19 NM: 188 QRS: 9 T: 43 INTERPRETIVE STATEMENTS: Normal sinus rhythm Normal ECG Compared to ECG 09/17/2019 08:01:36 Atrial fibrillation no longer present Electronically Signed On 09-20-19 06:11:24 CDT by Rc Escudero
== END 2019-09-18 12:45 | disposition home or self-care (01) ==
LOC: ER 23:38 → ERHOLD 09-17 02:21 → INTOOBSV 09-17 02:21 → 4TH 09-17 14:38 → 2ND 09-17 21:10
PROVIDERS: ADMIT Hospitalist; ATTEND Family Medicine
DX: I48.91 Unspecified atrial fibrillation (principal); R55 Syncope and collapse; F10.10 Alcohol abuse, uncomplicated; S43.51XA Sprain of right acromioclavicular joint, initial encounter; S46.811A Strain of other muscles, fascia and tendons at shoulder and upper arm level, right arm, initial encounter; W19.XXXA Unspecified fall, initial encounter
CPT/HCPCS: 96365; 96367; 93005 ×3; 85025; 80048; 36415; 83735; 85610; 80076; 84443; 84484 ×3; 84439; 83690; 83880; 70450; 71045; 71110; 73030; 73221; 96375; 96372; 99285; 96366; J3411; J3475; J1650; J7030; G0378 ×3